=== PATIENT | male | born 1980 | race Caucasian/White ===

== ENCOUNTER 2017-01-15 18:08 | Emergency (ER) | payer BC ==
[2017-01-15 19:38] VITALS: RESP 18
--- NOTE | 2017-01-15 20:52 | ED ---
General Adult HPI - General Chief complaint: Abdominal Pain Stated complaint: CONSTIPATION AND RECTAL BLEEDING Time Seen by Provider: 01/15/17 20:30 Source: patient, RN notes reviewed Mode of arrival: ambulatory - History of Present Illness Initial comments: Patient 36-year-old male who presents emergency room today with chief complaint cast patient 2 days. He does admit that he recently started a prescription of naproxen due to left-sided TMJ. Patient states that he's not had a bowel movement past 3 days. He does admit that he's been straining. He does admit that today when he was wiping he noticed some blood on the toilet paper. Patient states he did call family doctor and on-call nurse advised him come here to the emergency room. Patient denies any other complaints or symptoms currently at this time. Denies ever having similar symptoms in the past. Patient denies any recent fever, chills, shortness of breath, chest pain, back pain, abdominal pain, nausea or vomiting, numbness or tingling, dysuria or hematuria, diarrhea, headaches or visual changes, or any other complaints. - Related Data Home Medications Medication Instructions Recorded Confirmed Amoxicillin 500 mg PO TID 01/15/17 01/15/17 Atorvastatin [Lipitor] 20 mg PO DAILY 01/15/17 01/15/17 Hyoscyamine Sulfate [Levbid] 0.375 mg PO BID 01/15/17 01/15/17 Naproxen [Naprosyn] 375 mg PO BID 01/15/17 01/15/17 Allergies Allergy/AdvReac Type Severity Reaction Status Date / Time codeine Allergy Hallucinati Verified 01/15/17 21:09 ons Review of Systems ROS Statement: Those systems with pertinent positive or pertinent negative responses have been documented in the HPI. ROS Other: All systems not noted in ROS Statement are negative. Past Medical History Past Medical History: No Reported History Additional Past Medical History / Comment(s): irritable bowel syndrome History of Any Multi-Drug Resistant Organisms: None Reported Past Surgical History: Orthopedic Surgery Past Psychological History: Anxiety Smoking Status: Never smoker Past Alcohol Use History: Occasional Past Drug Use History: None Reported General Exam - General Exam Comments Initial Comments: General: The patient is awake and alert, in no distress, and does not appear acutely ill. Eye: Pupils are equal, round and reactive to light, extra-ocular movements are intact. No nystagmus. There is normal conjunctiva bilaterally. No signs of icterus. Ears, nose, mouth and throat: There are moist mucous membranes and no oral lesions. Neck: The neck is supple, there is no tenderness or JVD. Cardiovascular: There is a regular rate and rhythm. No murmur, rub or gallop is appreciated. Respiratory: Lungs are clear to auscultation, respirations are non-labored, breath sounds are equal. No wheezes, stridor, rales, or rhonchi. Gastrointestinal: Soft, non-distended, non-tender abdomen without masses or organomegaly noted. There is no rebound or guarding present. No CVA tenderness. Bowel sounds are unremarkable. Musculoskeletal: Normal ROM, no tenderness. Strength 5/5. Sensation intact. Pulses equal bilaterally 2+. Neurological: A&O x 3. CN II-XII intact, There are no obvious motor or sensory deficits. Coordination appears grossly intact. Speech is normal. Skin: Skin is warm and dry and no rashes or lesions are noted. Psychiatric: Cooperative, appropriate mood & affect, normal judgment. Course Vital Signs 01/15/17 19:34 Temperature 98.9 F Pulse Rate 66 Respiratory 18 Rate Blood Pressure 138/86 O2 Sat by Pulse 98 Oximetry Medical Decision Making - Medical Decision Making Case discussed in detail with attending physician Dr. Ruth. Patient reexamined at this time shows no signs of distress. Abdomen soft nontender. X- ray does show moderate amount of stool no sign of obstruction. Results were discussed with the patient. Patient will be given magnesium citrate and advised to drink a large glass water with this. Advised to use stool softener for any hemorrhoids. Advised follow-up with family doctor over the next 2 days. Advised return to emergency room if there is any dizziness lightheadedness or increase or worsening of symptoms. Patient states understanding and is in agreement with this plan. Disposition Clinical Impression: Constipation Disposition: HOME SELF-CARE Condition: Good Instructions: Constipation (ED) Additional Instructions: Please use medication as discussed. Please follow-up with family doctor in the next 2 days of symptoms have not improved. Please return to emergency room if the symptoms increase or worsen or for any other concerns. Time of Disposition: 21:15
--- NOTE | 2017-01-15 21:07 | XR ---
EXAMINATION TYPE: XR KUB DATE OF EXAM: 01/15/2017 8:54 PM COMPARISON: NONE HISTORY: Rectal pain and bleeding today TECHNIQUE: 2 upright views FINDINGS: There is mild levocurvature of the lumbar spine, likely positional. Mildly prominent pancol onic stool noted, but the bowel gas pattern is normal and there is no pneumoperitoneum or pneumoperit oneum. The soft tissues and skeletal structures of the abdomen and pelvis are unremarkable. The visua lized lung bases and pleural spaces are negative. IMPRESSION: NO ACUTE PROCESS.
[2017-01-15] MEDS ORDERED: MAGNESIUM CITRATE 296 ML BOTTLE PO ONE (21:15)
[2017-01-15 22:02] VITALS: BP 116/76; PULSE 60; TEMP 98
== END 2017-01-15 22:01 | disposition home or self-care (01) ==
LOC: EC 18:08
DX: K59.00 Constipation, unspecified (principal); Z79.899 Other long term (current) drug therapy; Z79.1 Long term (current) use of non-steroidal anti-inflammatories (NSAID); Z88.5 Allergy status to narcotic agent
CPT/HCPCS: 74000; 99284

== ENCOUNTER → 2017-07-29 | Outpatient (CLI) | payer BC ==
--- NOTE | 2017-07-29 08:50 | US ---
EXAMINATION TYPE: US abdomen complete DATE OF EXAM: 07/29/2017 COMPARISON: NONE CLINICAL HISTORY: R19.4 Change in bowel habits. Pt states nausea and change in bowel habits EXAM MEASUREMENTS: Liver Length: 11.7 cm Gallbladder Wall: 0.2 cm CBD: 0.3 cm Spleen: 11.7 cm Right Kidney: 10.4 x 5.4 x 5.3 cm Left Kidney: 11.6 x 5.7 x 4.6 cm Pancreas: wnl, tail obscured by overlying bowel gas Liver: wnl Gallbladder: wnl Evidence for sonographic Navarro's sign: No CBD: wnl Spleen: wnl Right Kidney: wnl Left Kidney: wnl Upper IVC: wnl Abd Aorta: wnl No abnormality visualized to account for pt's symptoms The liver is homogenous. The intrahepatic portion of the IVC and proximal abdominal aorta are within normal limits. There is no evidence of cholelithiasis. Common bile duct is unremarkable. The visu alized portions of the pancreas are homogenous. The spleen is unremarkable. Kidneys are symmetric a nd free of hydronephrosis. No renal lesions are seen. IMPRESSION: Negative study
== END | disposition home or self-care (01) ==
LOC: RADUSWWP 07:46
DX: R19.4 Change in bowel habit (principal)
CPT/HCPCS: 76700

== ENCOUNTER 2017-09-07 00:17 | Emergency (ER) | payer BC ==
[2017-09-07] MEDS ORDERED: DICYCLOMINE 10 MG/ML 2 ML AMP IM STA (01:17)
[2017-09-07] MEDS ORDERED: KETOROLAC 30 MG/ML 1 ML VIAL IVP STA (01:17)
[2017-09-07] MEDS ORDERED: SODIUM CHLORIDE 0.9% 500 ML IV STA (01:17)
[2017-09-07 01:55] LABS: Basophils % (A) 0 %; CH 29.3; CHCM 33.7; Eosinophils # (A) 0.1 k/uL (0-0.7); Eosinophils % (A) 2 %; HCT 44.2 % (39.0-53.0); HDW 2.59; HGB 14.5 gm/dL (13.0-17.5); Luc # (Auto) 0.18; Luc % (Auto) 3; Lymphocytes # (A) 1.6 k/uL (1.0-4.8); Lymphocytes % (A) 29 %; MCH 28.7 pg (25.0-35.0); MCHC 32.9 g/dL (31.0-37.0); MCV 87.3 fL (80.0-100.0); Mean Platelet Volume 6.7; Monocytes # (A) 0.4 k/uL (0-1.0); Monocytes % (A) 8 %; Neutrophils # (A) 3.3 k/uL (1.3-7.7); Neutrophils % (A) 58 %; RBC 5.07 m/uL (4.30-5.90); RDW 12.4 % (11.5-15.5); WBC 5.7 k/uL (3.8-10.6); WBC (Perox) 5.31
--- NOTE | 2017-09-07 02:02 | XR ---
EXAMINATION TYPE: XR KUB DATE OF EXAM: 09/07/2017 COMPARISON: 01/15/2017 HISTORY: Abdominal pain TECHNIQUE: 2 views FINDINGS: There is no sign of intestinal obstruction or pneumoperitoneum. Fecal pattern is normal. Th ere are no pathologic calcifications over the kidneys. Lung bases are clear. There is no evidence of a mass. IMPRESSION: Nonacute abdomen. No change.
[2017-09-07 02:10] LABS: ALT 38 U/L (21-72); AST 34 U/L (17-59); Alkaline Phosphatase 92 U/L (38-126); Amylase 68 U/L (30-110); Anion Gap 9 mmol/L; Blood Urea Nitrogen 15 mg/dL (9-20); Calcium 9.8 mg/dL (8.4-10.2); Carbon Dioxide 29 mmol/L (22-30); Chloride 104 mmol/L (98-107); Glucose 90 mg/dL (74-99); Non-African American GFR(MDRD) >60 (>60 ml/min/1.73 sqM); Sodium 142 mmol/L (137-145); Total Bilirubin 0.6 mg/dL (0.2-1.3); Total Protein 7.1 g/dL (6.3-8.2)
[2017-09-07 02:27] VITALS: RESP 18
[2017-09-07] MEDS ORDERED: RX INFO: IV CONTRAST WAS GIVEN 1 EACH MISC MISCELLANE PRN (02:46)
--- NOTE | 2017-09-07 03:25 | CT ---
EXAM: CT Abdomen and Pelvis With Intravenous Contrast CLINICAL HISTORY: Pain TECHNIQUE: Axial computed tomography images of the abdomen and pelvis with intravenous contrast. CTDI is 7.8, 6.9 mGy and DLP is 579.8 mGy-cm. This CT exam was performed using one or more of the following dose reduction techniques: automated exposure control, adjustment of the mA and/or kV according to patient size, and/or use of iterative reconstruction technique. COMPARISON: No relevant prior studies available. FINDINGS: Lower thorax: No acute findings. ABDOMEN: Liver: Unremarkable. Gallbladder and bile ducts: Unremarkable. Pancreas: Unremarkable. Spleen: Unremarkable. Adrenals: Unremarkable. Kidneys and ureters: Unremarkable. Stomach and bowel: Unremarkable. Appendix: No findings to suggest acute appendicitis. PELVIS: Bladder: Unremarkable. Reproductive: Unremarkable as visualized. ABDOMEN and PELVIS: Intraperitoneal space: Unremarkable. Bones/joints: No acute fracture. No dislocation. Soft tissues: Unremarkable. Vasculature: Unremarkable. Lymph nodes: Unremarkable. IMPRESSION: Normal abdomen and pelvis CT.
--- NOTE | 2017-09-07 03:31 | ED ---
Abdominal Pain HPI - General Chief Complaint: Abdominal Pain Stated Complaint: Stomach Pain/Diarrhea Time Seen by Provider: 09/07/17 00:42 Source: patient Mode of arrival: ambulatory Limitations: no limitations - History of Present Illness Initial Comments: 36-year-old male patient presents to the emergency department today for evaluation of abdominal pain and diarrhea. Patient states that he started having abdominal pain approximately 10 days ago. States the pain is located in the center of his abdomen. He describes the pain is a sharp, cramping, intermittent pain. He states that 2 days ago he began to have "severe" diarrhea. He states that he has had similar symptoms to this over the last year and a half. Patient states that his doctor has been treating him for IBS- D. States he takes hyosciamine which is not controlling his symptoms. Patient states that he called his physician this evening who sent him in for evaluation. Patient denies any fevers or chills with this. Denies any hematochezia, melena, or hematemesis. He states he is not having any nausea or vomiting. States he has no appetite and has decreased his oral intake because he has diarrhea whenever he eats. Patient denies any recent rash, shortness breath, chest pain, back pain, numbness, tingling, dizziness, weakness, hematuria, dysuria, urinary urgency, urinary frequency, headache, visual changes , or any other complaints. Patient states that he has seen a lay out inspector does have an appointment with them on September 25. - Related Data Home Medications Medication Instructions Recorded Confirmed Amoxicillin 500 mg PO TID 01/15/17 01/15/17 Atorvastatin [Lipitor] 20 mg PO DAILY 01/15/17 01/15/17 Hyoscyamine Sulfate [Levbid] 0.375 mg PO BID 01/15/17 01/15/17 Naproxen [Naprosyn] 375 mg PO BID 01/15/17 01/15/17 Previous Rx's Medication Instructions Recorded Dicyclomine [Bentyl] 20 mg PO QID #20 tablet 09/07/17 Allergies Allergy/AdvReac Type Severity Reaction Status Date / Time codeine Allergy Hallucinati Verified 09/07/17 00:21 ons Review of Systems ROS Statement: Those systems with pertinent positive or pertinent negative responses have been documented in the HPI. ROS Other: All systems not noted in ROS Statement are negative. Past Medical History Past Medical History: No Reported History Additional Past Medical History / Comment(s): irritable bowel syndrome History of Any Multi-Drug Resistant Organisms: None Reported Past Surgical History: Orthopedic Surgery Past Psychological History: Anxiety Smoking Status: Never smoker Past Alcohol Use History: Occasional Past Drug Use History: None Reported General Exam Limitations: no limitations General appearance: alert, in no apparent distress, other (This is a well- developed, well-nourished adult male patient in no acute distress. Vital signs upon presentation were temperature 98.1F, pulse 67, respirations 16, blood pressure 142/78, pulse ox 99% on room air.) Eye exam: Present: normal appearance, PERRL, EOMI. Absent: scleral icterus, conjunctival injection, periorbital swelling ENT exam: Present: normal exam, normal oropharynx, mucous membranes moist Respiratory exam: Present: normal lung sounds bilaterally. Absent: respiratory distress, wheezes, rales, rhonchi, stridor Cardiovascular Exam: Present: regular rate, normal rhythm, normal heart sounds. Absent: systolic murmur, diastolic murmur, rubs, gallop, clicks GI/Abdominal exam: Present: soft, tenderness (Mid epigastric tenderness), normal bowel sounds. Absent: distended, guarding, rebound, rigid Neurological exam: Present: alert, oriented X3, CN II-XII intact Psychiatric exam: Present: normal affect, normal mood Skin exam: Present: warm, dry, intact, normal color. Absent: rash Course Vital Signs 09/07/17 09/07/17 00:20 02:26 Temperature 98.1 F Pulse Rate 67 56 L Respiratory 16 18 Rate Blood Pressure 142/78 118/69 O2 Sat by Pulse 99 97 Oximetry Medical Decision Making - Medical Decision Making 36-year-old male patient presents to the emergency department today for evaluation of abdominal pain and diarrhea. Physical examination did reveal some midepigastric tenderness. Labs were reviewed and were unremarkable. CT of the abdomen and pelvis was obtained and did show a normal CT. Patient was updated regarding findings. He states that his symptoms are mildly improved here in the department. I did discuss with him that his findings are most likely a flareup of his irritable bowel syndrome. I did offer to give a prescription for Bentyl however he states that this medication give some panic attacks. Patient does see her Neurologist Does Have an Appointment on September 25. He Is Instructed to Keep This Appointment. I Instructed Him to Follow up with His Primary Care Physician for Recheck in 1-2 Days. He Is Instructed to Return Here Immediately for Any New, Worsening, or concerning Symptoms. He Verbalizes Understanding and Agrees with This Plan. - Lab Data Result diagrams: 09/07/17 01:41 09/07/17 01:41 Lab Results 09/07/17 09/07/17 Range/Units 01:41 01:41 WBC 5.7 (3.8-10.6) k/uL RBC 5.07 (4.30-5.90) m/uL Hgb 14.5 (13.0-17.5) gm/dL Hct 44.2 (39.0-53.0) % MCV 87.3 (80.0-100.0) fL MCH 28.7 (25.0-35.0) pg MCHC 32.9 (31.0-37.0) g/dL RDW 12.4 (11.5-15.5) % Plt Count 257 (150-450) k/uL Neutrophils % 58 % Lymphocytes % 29 % Monocytes % 8 % Eosinophils % 2 % Basophils % 0 % Neutrophils # 3.3 (1.3-7.7) k/uL Lymphocytes # 1.6 (1.0-4.8) k/uL Monocytes # 0.4 (0-1.0) k/uL Eosinophils # 0.1 (0-0.7) k/uL Basophils # 0.0 (0-0.2) k/uL Sodium 142 (137-145) mmol/L Potassium 5.0 (3.5-5.1) mmol/L Chloride 104 (98-107) mmol/L Carbon Dioxide 29 (22-30) mmol/L Anion Gap 9 mmol/L BUN 15 (9-20) mg/dL Creatinine 0.90 (0.66-1.25) mg/dL Est GFR (MDRD) Af Amer >60 (>60 ml/min/1.73 sqM) Est GFR (MDRD) Non-Af >60 (>60 ml/min/1.73 sqM) Glucose 90 (74-99) mg/dL Calcium 9.8 (8.4-10.2) mg/dL Total Bilirubin 0.6 (0.2-1.3) mg/dL AST 34 (17-59) U/L ALT 38 (21-72) U/L Alkaline Phosphatase 92 (38-126) U/L Total Protein 7.1 (6.3-8.2) g/dL Albumin 4.5 (3.5-5.0) g/dL Amylase 68 (30-110) U/L Lipase 130 (23-300) U/L - Radiology Data Radiology results: report reviewed, image reviewed KUB x-ray of the abdomen shows no sign of intestinal obstruction or pneumoperitoneum. Fecal pattern is normal. There are no pathologic calcifications over the kidneys. Lung bases are clear. There is no evidence of a mass. Impression by Dr. Nagel shows nonacute abdomen with no change. CT of the abdomen and pelvis with contrast report reviewed in its entirety, impression by Dr. Briggs shows normal abdomen and pelvis CT. Disposition Clinical Impression: Abdominal pain, Diarrhea Disposition: HOME SELF-CARE Condition: Good Instructions: Acute Diarrhea (ED), Abdominal Pain (ED) Additional Instructions: Increase fluids. Take medications as directed. Follow-up with your primary care physician for further evaluation. Follow up with lay out inspector. Return here immediate for any new, worsening, or concerning symptoms. Prescriptions: Dicyclomine [Bentyl] 20 mg PO QID #20 tablet Referrals: Amira Adler III, MD [Primary Care Provider] - 1-2 days Time of Disposition: 03:31
[2017-09-07 03:54] VITALS: BP 111/69; PULSE 70; TEMP 97.6
== END 2017-09-07 03:54 | disposition home or self-care (01) ==
LOC: EC 00:17
DX: R10.13 Epigastric pain (principal); R19.7 Diarrhea, unspecified; Z79.1 Long term (current) use of non-steroidal anti-inflammatories (NSAID); Z79.899 Other long term (current) drug therapy; Z88.5 Allergy status to narcotic agent
CPT/HCPCS: 36415; 80053; 82150; 83690; 85025; 74000; 74177; 99284; 96374; 96361 ×2; 96372; J0500; J1885; Q9967

== ENCOUNTER 2018-02-06 17:19 | Emergency (ER) | payer BC, OTHER ==
[2018-02-06 17:26] VITALS: BP 128/74; PULSE 89; RESP 16; TEMP 97.9
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
== END 2018-02-06 18:15 | disposition home or self-care (01) ==
LOC: EC 17:19
DX: S09.90XA Unspecified injury of head, initial encounter (principal); K58.9 Irritable bowel syndrome, unspecified; R42 Dizziness and giddiness; Z79.1 Long term (current) use of non-steroidal anti-inflammatories (NSAID); Z79.899 Other long term (current) drug therapy; Z88.5 Allergy status to narcotic agent; W20.8XXA Other cause of strike by thrown, projected or falling object, initial encounter; Y92.69 Other specified industrial and construction area as the place of occurrence of the external cause; Y99.0 Civilian activity done for income or pay
CPT/HCPCS: 70450; 99283

== ENCOUNTER → 2020-08-13 | Outpatient (CLI) | payer BC ==
--- NOTE | 2020-08-13 18:46 | XR ---
EXAMINATION TYPE: XR lumbar spine 2 or 3V DATE OF EXAM: 08/13/2020 CLINICAL HISTORY: Intermittent lower back pain. No known injury. TECHNIQUE: Frontal and lateral images of the lumbar spine are obtained. COMPARISON: CT abdomen pelvis 09/07/2017. FINDINGS: There are 5 lumbar type vertebral bodies identified. The lumbar spine shows satisfactory alignment without evidence of acute fracture or dislocation. Vertebral body heights and disk space he ights are within normal limits. No spondylolisthesis. The overlying soft tissue appears unremarkable. IMPRESSION: Unremarkable radiograph of the lumbar spine.
== END | disposition home or self-care (01) ==
LOC: RADXRMAIN 12:57
PROVIDERS: ATTEND Nurse Practitioner Family
DX: M54.5 Low back pain (principal)
CPT/HCPCS: 72100

== ENCOUNTER → 2020-08-27 | Outpatient (CLI) | payer BC | END | disposition home or self-care (01) | LOC: LABWHC1 11:16 | PROVIDERS: ATTEND Family Medicine | DX: Z20.828 Contact with and (suspected) exposure to other viral communicable diseases (principal) | CPT/HCPCS: U0003; C9803 ==

== ENCOUNTER → 2020-12-18 | Outpatient (CLI) | payer BC ==
--- NOTE | 2020-12-18 08:52 | US ---
EXAMINATION TYPE: US abdomen complete DATE OF EXAM: 12/18/2020 COMPARISON: None CLINICAL HISTORY: 40-year-old male R79.89 Abnormal findings of blood chemistry. TECHNIQUE: Multiple sonographic images of the abdomen are obtained. FINDINGS: EXAM MEASUREMENTS: Liver Length: 12.8 cm Gallbladder Wall: 0.1 cm CBD: 0.3 cm Spleen: 10.5 cm Right Kidney: 11.8 x 5.7 x 5.5 cm Left Kidney: 11.3 x 4.9 x 4.9 cm Pancreas: Only a small portion of the pancreatic body is visualized. The remainder is obscured by bow el gas shadowing. Liver: No focal lesion seen. Gallbladder: No stones seen Evidence for sonographic Navarro's sign: No CBD: wnl Spleen: wnl Kidneys: No hydronephrosis on either side. Upper IVC: wnl Abd Aorta: wnl IMPRESSION: Suboptimal visualization of the pancreas. Otherwise, unremarkable sonographic examination of the abdo men.
== END ==
LOC: RADUSWWP 08:11
PROVIDERS: ATTEND Family Medicine
DX: R79.89 Other specified abnormal findings of blood chemistry (principal)
CPT/HCPCS: 76700

== ENCOUNTER → 2022-11-02 | Outpatient (CLI) | payer BC ==
--- NOTE | 2022-11-02 10:09 | XR ---
EXAMINATION TYPE: XR chest 2V DATE OF EXAM: 11/02/2022 COMPARISON: NONE TECHNIQUE: PA and lateral views submitted. HISTORY: Presurgical FINDINGS: The lungs are clear and there is no pneumothorax, pleural effusion, or focal pneumonia. Heart size normal and no overt failure. Osseous structures demonstrate hypertrophic and degenerative changes of the spine. IMPRESSION: 1. No acute process.
[2022-11-02 10:22] LABS: Partial Thromboplastin Time 26.4 sec (22.0-30.0); Prothrombin Time 10.4 sec (9.0-12.0)
[2022-11-02 14:56] LABS: Anion Gap 9.9 mmol/L (10.00-18.00); BUN/Creat Ratio 10.19 Ratio (12.00-20.00); Blood Urea Nitrogen 10.7 mg/dL (9.0-27.0); Calcium 9.6 mg/dL (8.7-10.3); Carbon Dioxide 26.5 mmol/L (20.0-27.5); Non-African American GFR(CKD) 87.1 (60.0-200.0); Potassium 4.4 mmol/L (3.5-5.5)
[2022-11-02 15:01] LABS: Basophils # (A) 0.02 X 10*3/uL (0.00-0.10); Basophils % (A) 0.4 %; Eosinophils # (A) 0.06 X 10*3/uL (0.04-0.35); Eosinophils % (A) 1.2 %; HCT 44.1 % (39.6-50.0); HGB 14.7 g/dL (13.0-17.0); Immature Grans, Automated 0.2 %; Lymphocytes # (A) 1.17 X 10*3/uL (0.90-5.00); Lymphocytes % (A) 24.2 %; MCH 28.3 pg (27.0-32.0); MCHC 33.3 g/dL (32.0-37.0); Mean Platelet Volume 9.3 fL (9.5-12.2); Monocytes # (A) 0.54 X 10*3/uL (0.20-1.00); Monocytes % (A) 11.2 %; NRBC Per 100 WBC 0 /100 WBCS (0.0-0.0); Neutrophils # (A) 3.03 X 10*3/uL (1.80-7.70); Neutrophils % (A) 62.8 %; Platelet Count 285 X 10*3/uL (140-440); RBC 5.19 X 10*6/uL (4.40-5.60); RDW 12.1 % (11.5-14.5); WBC 4.83 X 10*3/uL (4.50-10.00)
[2022-11-02 16:58] LABS: Appearance,Urine Clear (Clear); Bilirubin,Urine Negative (Negative); Blood,Urine Negative (Negative); Color,Urine Dark Yellow (Yellow); Ketones,Urine Negative (Negative); Nitrite,Urine Negative (Negative); PH, Urine 5.5 (5.0-8.0); Specific Gravity,Urine 1.032 (1.001-1.030)
== END | disposition home or self-care (01) ==
LOC: LABPAT 09:13
PROVIDERS: ATTEND Family Medicine
DX: Z01.818 Encounter for other preprocedural examination (principal); R00.1 Bradycardia, unspecified; R94.31 Abnormal electrocardiogram [ECG] [EKG]; M51.17 Intervertebral disc disorders with radiculopathy, lumbosacral region; E78.2 Mixed hyperlipidemia; F41.9 Anxiety disorder, unspecified; M47.27 Other spondylosis with radiculopathy, lumbosacral region
CPT/HCPCS: 71046; 80048; 81003; 85025; 85610; 85730; 87070; 93005

== ENCOUNTER 2022-11-11 06:25 | Observation (INO) | payer BC ==
[2022-11-03 10:54] VITALS: BMI 31.4
[~2022-11-11 06:25] MED LIST: DEXAMETHASONE SOD PHOSPHATE 4 MG/ML 1 ML VIAL IV ONE; LIDOCAINE 1% (10MG/ML) FOR IV START INTRADERMA PRN; ceFAZolin 1,000 MG in SODIUM CHLORIDE 0.9% IRRIGATIO 1,000 ML IRRIGATION PRN
[2022-11-11] MEDS ORDERED: METOCLOPRAMIDE 5 MG/ML 2 ML VIAL IVP PRN (07:00)
[2022-11-11] MEDS: LACTATED RINGERS 1,000 ML IV SCH (07:05)
[2022-11-11] MEDS: ONDANSETRON 4 MG/2 ML VIAL IVP ONE ×2 (07:10→10:53)
[2022-11-11] MEDS ORDERED: MIDAZOLAM 2 MG/2 ML VIAL IV ONE (07:16)
[2022-11-11] MEDS ORDERED: fentaNYL (PF) 50 MCG/ML 2 ML AMP ONE (07:28)
[2022-11-11] MEDS ORDERED: PROPOFOL 10 MG/ML 20 ML VIAL IV ONE (07:28)
[2022-11-11] MEDS ORDERED: HYDROmorphone (PF) 1 MG/ML ONE (07:28)
[2022-11-11] MEDS ORDERED: KETAMINE 10 MG/ML 20 ML VIAL ONE (07:28)
[2022-11-11] MEDS ORDERED: MIDAZOLAM 2 MG/2 ML VIAL ONE (07:28)
[2022-11-11] MEDS ORDERED: NEOSTIGMINE 1 MG/ML 10 ML VIAL ONE (07:28)
[2022-11-11] MEDS ORDERED: SUCCINYLCHOLINE CHLORIDE 200 MG/10 ML VIAL IV ONE (07:28)
[2022-11-11] MEDS ORDERED: LIDOCAINE 2% INJ 20 MG/ML (2 ML VIAL) ONE (07:28)
[2022-11-11] MEDS ORDERED: GLYCOPYRROLATE 0.2 MG/ML 2 ML VIAL ONE (07:28)
[2022-11-11] MEDS ORDERED: ROCURONIUM 10 MG/ML (5 ML VIAL) IV ONE (07:28)
[2022-11-11] MEDS ORDERED: GELATIN SPONGE,ABSORB (LARGE) 1 EACH SPONGE TOPICAL ONE (07:59)
[2022-11-11] MEDS ORDERED: LIDOCAINE 2%-EPI 1:100,000 20 ML VIAL SQ ONE ×2 (08:01→08:06)
[2022-11-11] MEDS ORDERED: BUPIVACAINE (PF) 0.5% 30 ML VIAL SQ ONE ×2 (08:01→08:06)
[2022-11-11] MEDS ORDERED: THROMBIN (BOVINE) 5,000 UNIT VIAL TOPICAL ONE (08:01)
[2022-11-11] MEDS ORDERED: HYDROcodone/APAP 5-325MG 1 EACH TAB PO PRN (10:48)
[2022-11-11] MEDS ORDERED: BENZOCAINE/MENTHOL LOZENG 1 EACH LOZENGE MUCOUS MEM PRN (10:48)
[2022-11-11] MEDS ORDERED: HYDROmorphone 0.5 MG/0.5 ML SYRINGE IVP PRN (10:48)
[2022-11-11] MEDS ORDERED: MAGNESIUM HYDROXIDE 2,400 MG/10 ML CUP PO PRN (10:48)
--- NOTE | 2022-11-11 10:59 | P.OP ---
Date of Procedure: 11/11/22 Preoperative Diagnosis: Recurrent disc herniation L5-S1, recurrent stenosis L5-S1, listhesis L5-S1, degenerative disc disease, lower extremity radiculopathy, lower extremity weakness, history of laminectomy discectomy L5-S1 Postoperative Diagnosis: Recurrent disc herniation L5-S1, recurrent stenosis L5-S1, listhesis L5-S1, degenerative disc disease, lower extremity radiculopathy, lower extremity weakness, history of laminectomy discectomy L5-S1 Anesthesia: GETA Pathology: none sent Condition: stable Disposition: PACU Description of Procedure: DESCRIPTION OF PROCEDURE(S): BRIEF OPERATIVE NOTE Preoperative Diagnosis: Recurrent disc herniation L5-S1, recurrent stenosis L5- S1, listhesis L5-S1, degenerative disc disease, lower extremity radiculopathy, lower extremity weakness, history of laminectomy discectomy L5-S1 Postoperative Diagnosis: Recurrent disc herniation L5-S1, recurrent stenosis L5- S1, listhesis L5-S1, degenerative disc disease, lower extremity radiculopathy, lower extremity weakness, history of laminectomy discectomy L5-S1 Procedure: Revision Laminectomy and decompression L5-S1 Computer CT navigation aided Minimally invasive Posterior lateral decompression and facet fusion L5-S1 Minimally invasive Transforaminal lumbar interbody fusion for a 360 fusion L5-S1 Revision Discectomy for decompression L5-S1 Placement of interbody graft L5-S1 Use of computer navigation for fusion Local autogenous bone grafting Aspiration of bone marrow from the vertebral body pedicle at L5 on the left Use of bone graft extenders Surgeon: Dr. Dailey Back Stayer: Abundio VALLECILLO who is present throughout the entire the case persistence during positioning, dissection, exposure, visualization, and all crucial elements of the case as well as closure. Anesthesia: General anesthesia per Estimated blood loss: Approximately 200 mL Complications: None apparent Components implanted: K2M minimally invasive Burt pedicle screw system withscrews measuring 6.5 mm in diameter to rods one Hampton interbody cage with 10 mL of osteo amp bio4 bone graft substitute and 30 mL of the BX bone fibers to supplement the local autogenous bone graft and bone marrow aspirate Disposition: To recovery room in good stable condition. OPERATIVE INDICATIONS The patient has had severe issues at their lower extremity in her lower back over the past several months with significant worsening over the past few month s. The patient had a history of issues in his left lower extremity with severe radiculopathy due to disc herniation several years ago. Patient had undergone conservative treatment but when that failed he proceed with laminectomy decompression with discectomy at L5-S1 left. Patient was very happy with his results at that point he had significant treatment I was able to return to his full duty. However the patient had recurrence of his issues pain at his back and his left lower extremity over similar area. His found have recurrent disc herniation with significant scar tissue formation and stenosis at L5-S1 over the same area. Over the past few months the patient had pain at their back and their lower extremities. The patient is having severe radicular symptoms at their lower extremity with weakness. The patient is having significant pain in their back. They are unable to obtain any comfort. We did aggressive conservative treatment with medications therapy and interventional pain management however thery were not having any relief. The patient also showed evidence of a listhesis with some dynamic instability at L5-S1 with continued breakdown the disc space and progressive spondylosis at the L5-S1 level. The patient has been through conservative treatment. I felt that if he were to undergo further decompression at the area was destabilized and would be further destabilize and would need stabilization with fusion at the level. We discussed various treatment options including surgery, and the patient wishes to proceed with surgery We discussed the risk, patient's alternatives and benefits of surgery including but not limited to, risk of bleeding risk of infection, risk of need for further surgery, risk of decreased, loss of motion, muscle function, malunion nonunion, hardware failure, nerve damage, paralysis, heart attack, blindness and . They understood issues with the current pandemic and the possibility of exposure. OPERATIVE SUMMARY After discussing all the risks, patient alternatives and benefits at length, the patient elected to proceed with surgical intervention, signed informed consent, and presented for their procedure. The patient was seen and examined in the preoperative holding area and the surgical site was marked. The patient was given antibiotics and brought to the operating room. The patient was sedated and intubated by anesthesia in standard fashion. The patient was positioned on to the operating room table in a prone position on the appropriate frame which was well-padded and well molded. We were careful to pad any bony prominences and pressure points. We were careful to maintain the patient's cervical spine and good neutral alignment and position throughout. The patient was prepped and draped in a normal standard fashion. An appropriate timeout and keystone protocol performed. We were able to proceed with the surgery. The local wound area was infiltrated with local anesthetic. Over the right iliac crest I was able to make small stab incisions and establish a guidepin screw fixation to the iliac crest 2. I was able place the computer referencing device over the guidepins to establish an appropriate reference point for the Ziem CT navigation. We then were able to place patient in an appropriate drape and do a navigation spin for visualization and 3-D reconstruction of the lumbar spine. I was able utilize C-arm guidance and navigation to establish appropriate position over the pedicles bilaterally at the appropriate levels at L5-S1. With the appropriate levels confirmed was able to make small incisions over the appropriate pedicle sites bilaterally. Utilizing the computer navigation device I was able to establish bony landmarks at the right iliac crest for a bony reference point for the navigation device. I was able to establish a Jamshidi needle over the lateral aspect of the pedicle and advanced the trocar into the pedicle being careful not to breech superiorly inferiorly medially or laterally using computer navigation device. Position was confirmed regularly with AP and lateral images on C-arm and with the computer navigation device at the appropriate levels bilaterally. I was able to establish the trocar into the pedicle appropriately into the posterior aspect of the vertebral body bilaterally at the appropriate levels. This was done at each of the pedicle positions and each of the vertebrae. At the superior vertebrae of L5 on the left I was able to take approximately 25 mL of bone aspiration for use later in the case to supplement the allograft and autograft bone. I was able place the guidewire into the trocar and into the vertebral body appropriately under C-arm guidance. Dissection was taken down over the wire to the appropriate starting position for the screw placed. The appropriate length screw was chosen, threaded over the guidewire and screwed appropriately into the pedicle and vertebral body under C-arm guidance in excellent alignment and position with good bony purchase. This is done at each of the screw sites at the appropriate levels at L5 and S1. With the screws intact I extended the incision to connect the screw hole sites o n the most symptomatic side on the left. I dissected down to establish access over the pars and lamina to the base of the spinous process. I was able to expose the facet joint. It was noted that there was a her surgery at the area and there was significant scar tissue around the area which had to be dealt with an increase the surgical time and complexity. There is significant scar tissue around the epidural space as well which had to be teased out safely. The capsule the facet was taken down and showed some facet arthrosis at the joint. I was able to take down significant portion scar tissue formation as well as disc. Some of the scar tissue was significantly adherent to the dura and I had to leave it intact but was able to free up the space for a freely mobile nerve root. I was able to use a combination of curettes and Kerrison rongeurs and a high-speed drill to take down the facet joint and do a facetectomy. I was able get excellent foraminal decompression and central decompression with undermining across midline to perform a laminectomy centrally and contralaterally. I was able get good central decompression. The ligamentum flavum was taken down to further decompress centrally and at bilateral neural foramen. I was able to expose the disc space and visualize the traversing nerve root. Note was made of some disc protrusion and disc herniation that was abutting the traversing nerve root at the level causing further compression of the nerve root. I was able to establish a annulotomy at the appropriate level protecting soft tissue and neural structures. Note was made of some disc desiccation at the disc. I performed a complete discectomy with accommodation of curettes and rasps and scrapers. I was able get good endplate preparation at the disc space. I sized for the appropriate size interbody spacer protecting the soft tissue and neural structures. The wound was copiously irrigated and suctioned dry. There is no evidence of any dural tear or leak. I was able to pack the disc space with local autogenous bone graft as well as a small amount of bone graft which was also placed into the interbody cage itself. Protecting the soft tissue structures and neural structures I was able place the interbody cage in good alignment and good position with good fit and fill at the interbody space of L5 and S1. Position was confirmed with C-arm guidance. Good hemostasis maintained. There is no evidence of any dural tear or leak. The wound was irrigated and suctioned dry. With the hardware intact, intraoperative C-arm imaging was again taken which showed good alignment and position of the hardware at the appropriate levels of L5-S1. We were then able to measure, contour and place the rods and appropriate hardware bilaterally. I was able to place capcrews, tighten them down, and torque them with the torque screwdriver appropriately. With this intact I was able to place the local autogenous bone graft with additional bone graft enhancer as necessary into the posterior lateral gutters over the decorticated transverse processes and facet joints on the contralateral side. The remainder of the bone graft was placed over the facet joint on the contralateral side after taking down the facet joint capsule. With the bone graft intact, a stable construct, and good decompression at the appropriate levels, we were able to proceed with closure. Good hemostasis was maintained. There is no evidence of dural tear or leak. The fascia was closed for a watertight closure. he subcuticular tissue was closed with absorbable suture. The wound was cleaned and dried and dressed with the appropriate dressing. The drapes were broken down. The patient was gently rolled back onto their hospital bed being careful to maintain their cervical spine and good neutral alignment and position. They were woken up by anesthesia, extubated, and brought to the recovery room in good stable condition. The patient will be admitted to the hospital for appropriate postoperative care, medical management and monitoring. We will continue to follow them closely about the postoperative course.
[2022-11-11] MEDS: HYDROmorphone 0.5 MG/0.5 ML SYRINGE IVP PRN ×2 (11:17→11:37)
--- NOTE | 2022-11-11 11:42 | FL ---
EXAMINATION TYPE: FL guidance operating room, XR lumbar spine 2 or 3V DATE OF EXAM: 11/11/2022 CLINICAL HISTORY: Low back pain. TECHNIQUE: Fluoroscopy. Intraoperative 2 views lumbar spine COMPARISON: None. FINDINGS: Fluoroscopic guidance was provided during lumbar fusion procedure performed by Dr. Dailey. A total of 25 seconds of fluoroscopic time was utilized during the procedure and 5 spot images was a cquired. Intraoperative images acquired show eventual placement of metallic interpedicular rods and screws and metallic disc material at L5-S1 level. Satisfactory alignment is seen on intraoperative images obtai rosmery. IMPRESSION: As Above.
[2022-11-11] MEDS: HYDROmorphone 1 MG/ML 1 ML SYRINGE IVP PRN ×2 (14:14→20:08)
[2022-11-11] MEDS: CYCLOBENZAPRINE 10 MG TAB PO PRN ×2 (14:14→23:49)
[2022-11-11] MEDS: SODIUM CHLORIDE 0.9% 1,000 ML IV SCH (16:28)
[2022-11-11] MEDS: HYDROcodone/APAP 5-325MG 1 EACH TAB PO PRN ×2 (16:38→23:45)
[2022-11-12] MEDS: SODIUM CHLORIDE 0.9% 1,000 ML IV SCH (00:12)
--- NOTE | 2022-11-12 00:45 | P.CONS ---
History of Present Illness - Reason for Consult Consult date: 11/11/22 Medical management - Chief Complaint Status post revision laminectomy L4 S1 - History of Present Illness Patient is a 42-year-old male with a known history of hyperlipidemia, GERD, IBS and chronic back pain/spinal stenosis and history of laminectomy and multiple steroid injections was admitted to hospital for elective laminectomy and decompression L5-S1. Patient tolerated the procedure very well. Postoperative day 0. Denied any complaints of numbness or tingling sensation of the lower extremity. No complaints of chest pain or shortness breath. No nausea vomiting or abdominal pain or diarrhea. Patient has been afebrile. Laboratory data is not available at this time. Review of Systems Constitutional: Patient denies any fever or chills . no Generalized weakness. Abdomen: Patient denied any nausea or vomiting or abd. pain Cardiovascular: Patient denies any chest pain or short of breath no palpitations. Respiratory: patient denied any cough . no sputum production. No shortness of breath Neurologic: Patient denied any numbness or tingling headache. Musculoskeletal: Patient denies any complaints of joint swelling or deformity. Skin: Negative Psychiatric: Negative Endocrine: No heat or cold intolerance. No recent weight gain. Genitourinary: No dysuria or hematuria. All other 14 point ROS negative except the above Past Medical History Past Medical History: GERD/Reflux, Hyperlipidemia Additional Past Medical History / Comment(s): had prednisone in Aug 2022,irritable bowel syndrome,chronic back pain-spinal stenosis and degenerative disc disc History of Any Multi-Drug Resistant Organisms: None Reported Past Surgical History: Back Surgery, Orthopedic Surgery Additional Past Surgical History / Comment(s): laminectomy,oral surgery-no problems opening and closing jaw,closed reduction 5th digit rt hand, mult pain clinic procedures to back(steroid injections and nerve ablation) Past Anesthesia/Blood Transfusion Reactions: No Reported Reaction, Family History of Problems w/ Anesthesia Additional Past Anesthesia/Blood Transfusion Reaction / Comm: had panic attack w/ last laminectomy surgery,. sister has severe PONV. no hx blood transfusion Smoking Status: Never smoker - Past Family History Mother Family Medical History: No Reported History Additional Family Medical History / Comment(s): maternal grandfather brain CA Father Family Medical History: Deep Vein Thrombosis (DVT) Additional Family Medical History / Comment(s): paternal grandfather had a stoke. paternal grandmother had emphysema Medications and Allergies Home Medications Medication Instructions Recorded Confirmed Type Atorvastatin [Lipitor] 20 mg PO DAILY 01/15/17 11/03/22 History Hydrocodone/Acetaminophen 1 tab PO Q8H PRN 11/03/22 11/03/22 History [Hydrocodone/Acetaminophen 5-325] Ibuprofen [Advil] 200 mg PO Q8HR PRN 11/03/22 11/03/22 History Allergies Allergy/AdvReac Type Severity Reaction Status Date / Time codeine Allergy agitated Verified 11/03/22 10:25 egg Allergy Diarrhea,abdominal Verified 11/03/22 10:26 cramping Physical Exam Vitals: Vital Signs Temp Pulse Pulse Resp BP BP Pulse Ox 11/11/22 12:01 73 16 163/66 96 11/11/22 11:45 71 16 143/77 100 11/11/22 11:30 80 16 153/74 100 11/11/22 11:15 84 16 146/74 100 11/11/22 11:00 96 14 135/70 100 11/11/22 10:45 97.4 F L 85 10 L 129/78 99 11/11/22 06:55 97.2 F L 67 16 138/84 98 Intake and Output 11/11/22 11/11/22 11/11/22 06:59 14:59 22:59 Intake Total 951 Output Total 250 Balance 701 Intake: IV 951 Output: Urine 50 Estimated Blood Loss 200 Other: Weight 104.7 kg PHYSICAL EXAMINATION: Patient is lying in the bed comfortably, no acute distress, awake alert and oriented.. HEENT: Normocephalic. Neck is supple. Pupils reactive. Nostrils clear. Oral cavity is moist. Neck reveals no JVD, carotid bruits, or thyromegaly. CHEST EXAMINATION: Trachea is central. Symmetrical expansion. Lung mack clear to auscultation and percussion. CARDIAC: Normal S1, S2 with no gallops. No murmurs ABDOMEN: Soft. Bowel sounds present. Nontender. No organomegaly. No abdominal bruits. Extremities: reveal no edema. No clubbing or cyanosis Neurologically awake, alert, oriented x3 with well-coordinated movements. No focal deficits noted Skin: No rash or skin lesions. Psychiatric: Coperative. Nonsuicidal, Musculoskeletal: No joint swelling or deformity. Normal range of motion. Lumbar surgical site bandaged. Assessment and Plan Assessment: S/p revision laminectomy and decompression the L5-S1. Postoperative day 0 Recommend discontinuation L4 S1 and recurrent stenosis and degenerative disc disease, lower extremity radiculopathy and weakness. GERD Hyperlipidemia DVT prophylaxis with SCDs Plan: Patient will be continued on pain management as per anesthesia/pain service. Continue with statins and encourage incentive spirometry. Will follow closely and further recommendations based on the clinical course. Follow-up CBC and BMP tomorrow. Thank you for your consult.
[2022-11-12] MEDS ORDERED: ACETAMINOPHEN TAB 325 MG TAB PO PRN (02:04)
[2022-11-12] MEDS: HYDROmorphone 1 MG/ML 1 ML SYRINGE IVP PRN ×4 (02:50→22:21)
[2022-11-12] MEDS: LACTATED RINGERS 1,000 ML IV SCH (06:04)
[2022-11-12] MEDS: HYDROcodone/APAP 5-325MG 1 EACH TAB PO PRN ×4 (06:05→20:20)
[2022-11-12] MEDS: diazePAM 5 MG TAB PO PRN ×2 (06:27→16:34)
[2022-11-12] MEDS: ATORVASTATIN 20 MG TAB PO SCH (08:45)
[2022-11-12 09:40] LABS: Basophils # (A) 0.01 X 10*3/uL (0.00-0.10); Basophils % (A) 0.1 %; Eosinophils # (A) 0.02 X 10*3/uL (0.04-0.35); Eosinophils % (A) 0.2 %; HCT 38.6 % (39.6-50.0); HGB 12.7 g/dL (13.0-17.0); Immature Grans, Automated 0.3 %; Lymphocytes % (A) 10.1 %; MCH 28.6 pg (27.0-32.0); MCHC 32.9 g/dL (32.0-37.0); MCV 86.9 fL (80.0-97.0); Mean Platelet Volume 9.6 fL (9.5-12.2); Monocytes % (A) 14.1 %; NRBC Per 100 WBC 0 /100 WBCS (0.0-0.0); Neutrophils # (A) 7.48 X 10*3/uL (1.80-7.70); Neutrophils % (A) 75.2 %; Platelet Count 239 X 10*3/uL (140-440); RBC 4.44 X 10*6/uL (4.40-5.60); RDW 12.8 % (11.5-14.5); WBC 9.94 X 10*3/uL (4.50-10.00)
[2022-11-12 10:04] LABS: African American GFR (CKD) 98.7 (60.0-200.0); Anion Gap 10.8 mmol/L (10.00-18.00); BUN/Creat Ratio 9.81 Ratio (12.00-20.00); Blood Urea Nitrogen 10.5 mg/dL (9.0-27.0); Calcium 8.8 mg/dL (8.7-10.3); Carbon Dioxide 26.5 mmol/L (20.0-27.5); Non-African American GFR(CKD) 85.2 (60.0-200.0)
[2022-11-12] MEDS: TAMSULOSIN 0.4 MG CAP.ER.24H PO SCH (10:56)
[2022-11-12] MEDS: CYCLOBENZAPRINE 10 MG TAB PO PRN ×2 (10:56→20:20)
--- NOTE | 2022-11-12 10:56 | P.PN ---
Progress Note - Text Progress Note Date: 11/12/22 Postoperative day #1 Patient is seen and examined today at bedside. The patient has some pain around the surgical site as expected but has been able to get it out of bed with assistance. Pain is being controlled somewhat with medication. The patient had his White catheter discontinued yesterday evening but is having some post void residuals. His postvoid residual this morning was about 372. He says his left leg symptoms are improved. He is having some numbness has right thigh but he has good strength throughout. He denies any nausea vomiting. Physical Exam Afebrile with stable vital signs Abdomen is soft nontender. Chest has good excursion deep and space expiration The incision site is clean dry and intact. No erythema there is no purulence. His back dressing is clear Extremities have not had neurologic change from prior to surgery. He has sustained dorsal flexion plantarflexion and EHL intact. He is able to lift his legs up off the bed independently. Calves and thighs were soft nontender without evidence of DVT. Assessment/Plan Postoperative day #1 status post minimally invasive revision decompression and discectomy with fusion L5-S1 Patient is progressing adequately from the surgery. His pain seems appropriately controlled this morning basal having significant spasms and he may do well with alternating his Valium and Flexeril throughout the day. I discussed this with staff We will continue to increase the patient's mobilization with therapy. We will continue pain control with oral or IV medications. He is having trouble voiding fully. He is still able to urinate but having difficulty emptying. Medicine has started him on Flomax and I agree with this. If he has too much postvoid residual later this evening that he may need a catheter placed overnight for bowel rest however he would certainly like to avoid this and hopefully he will be able to continue to void on his own. We'll continue to follow patient closely.
--- NOTE | 2022-11-12 14:54 | P.PN ---
Subjective Progress Note Date: 11/12/22 - Reason for Consult Consult date: 11/11/22 Medical management - Chief Complaint Status post revision laminectomy L4 S1 - History of Present Illness Patient is a 42-year-old male with a known history of hyperlipidemia, GERD, IBS and chronic back pain/spinal stenosis and history of laminectomy and multiple steroid injections was admitted to hospital for elective laminectomy and decompression L5-S1. Patient tolerated the procedure very well. Postoperative day 0. Denied any complaints of numbness or tingling sensation of the lower extremity. No complaints of chest pain or shortness breath. No nausea vomiting or abdominal pain or diarrhea. Patient has been afebrile. Laboratory data is not available at this time. 11/12/2022 Patient seen and evaluated in follow-up this morning status post elective thomas inectomy and decompression of the L5 to S1 with Dr. Dailey postop day 1. Per nursing staff patient required straight catheterization last night as patient was retaining over 700. Patient continues to have some mild retention at this time although refusing straight cath or indwelling White catheter and will add Flomax and monitor intake and output closely. Patient reports his pain is severe above 8/10 although reports his Valium that was changed has been improving his pain. Patient to be seen and evaluated physical therapy which is currently pending this morning. Patient is afebrile denies chest pain or shortness of breath. Recommend incentive spirometer and encourage the patient easily sometimes every hour while awake. No reports of nausea or vomiting noted and patient is tolerating diet. Review of systems: Constitutional: No reports of fatigue, fever, or chills Cardiovascular: No reports of chest pain or palpitations Respiratory: No reports of shortness of breath or cough GI: No reports of nausea, vomiting, or diarrhea : No reports of dysuria or retention Neurovascular: reports of generalized weakness and continued pain with spasms All medications have been reviewed Active Medications Acetaminophen (Acetaminophen Tab 325 Mg Tab) 650 mg PO Q6HR PRN PRN Reason: Fever and/ or Pain Last Admin: 11/12/22 02:19 Dose: 650 mg Hydrocodone Bitart/Acetaminophen (Hydrocodone/Apap 5-325mg 1 Each Tab) 1 each PO Q4HR PRN PRN Reason: MODERATE Pain Stop: 12/11/22 10:49 Last Admin: 11/11/22 12:58 Dose: 1 each Hydrocodone Bitart/Acetaminophen (Hydrocodone/Apap 5-325mg 1 Each Tab) 2 each PO Q4HR PRN PRN Reason: SEVERE Pain Last Admin: 11/12/22 10:56 Dose: 2 each Atorvastatin Calcium (Atorvastatin 20 Mg Tab) 20 mg PO DAILY PIO Stop: 12/12/22 09:01 Last Admin: 11/12/22 08:45 Dose: 20 mg Benzocaine/Menthol (Benzocaine/Menthol Lozeng 1 Each Lozenge) 1 each MUCOUS MEM Q4HR PRN PRN Reason: Sore Throat Stop: 12/11/22 10:49 Last Admin: 11/11/22 12:59 Dose: 1 each Cyclobenzaprine HCl (Cyclobenzaprine 10 Mg Tab) 10 mg PO TID PRN PRN Reason: Muscle Spasm Stop: 12/11/22 10:49 Last Admin: 11/12/22 10:56 Dose: 10 mg Diazepam (Diazepam 5 Mg Tab) 5 mg PO QID PRN PRN Reason: Anxiety Stop: 12/11/22 10:49 Last Admin: 11/12/22 06:27 Dose: 5 mg Hydromorphone HCl (Hydromorphone 0.5 Mg/0.5 Ml Syringe) 0.5 mg IVP Q4HR PRN PRN Reason: Pain Stop: 12/11/22 10:49 Hydromorphone HCl (Hydromorphone 1 Mg/Ml 1 Ml Syringe) 1 mg IVP Q4HR PRN PRN Reason: Pain Stop: 12/11/22 10:49 Last Admin: 11/12/22 12:22 Dose: 1 mg Lactated Ringer's (Lactated Ringers) 1,000 mls @ 20 mls/hr IV .Q24H PIO Stop: 12/11/22 06:23 Last Admin: 11/12/22 06:04 Dose: Not Given Lidocaine HCl (Lidocaine 1% (10mg/Ml) For Iv Start) 0.1 ml INTRADERMA PER PROTOCOL PRN PRN Reason: IV Start Stop: 12/11/22 06:23 Last Admin: 11/11/22 07:00 Dose: 0.1 ml Magnesium Hydroxide (Magnesium Hydroxide 2,400 Mg/10 Ml Cup) 2,400 mg PO DAILY PRN PRN Reason: Constipation Stop: 12/11/22 10:49 Senna/Docusate Sodium (Sennosides-Docusate Sodium 1 Each Tab) 2 each PO DAILY PRN PRN Reason: Constipation Stop: 12/11/22 10:49 Tamsulosin HCl (Tamsulosin 0.4 Mg Cap.Er.24h) 0.4 mg PO PC-BRKFST PIO Last Admin: 11/12/22 10:56 Dose: 0.4 mg PHYSICAL EXAMINATION: . Patient is sitting up in the bed comfortably,, awake alert and oriented 3, well-developed, well-nourished, obese.. HEENT: Normocephalic. Neck is supple. Pupils reactive. Nostrils clear. Oral cavity is moist. Neck reveals no JVD, carotid bruits, or thyromegaly. CHEST EXAMINATION: Trachea is central. Symmetrical expansion. Lung mack clear to auscultation and percussion. CARDIAC: S1, S2 muffled ABDOMEN: Soft. Bowel sounds present. Nontender. No organomegaly. No abdominal bruits. Extremities: reveal no edema. No clubbing or cyanosis Neurologically awake, alert, oriented x3 with well-coordinated movements. No focal deficits noted Skin: No rash or skin lesions. Psychiatric: Cooperative. Non-suicidal, Musculoskeletal: No joint swelling or deformity. Normal range of motion. Lumbar surgical site bandaged. Assessment: S/p revision laminectomy and decompression the L5-S1. Postoperative day 1 Postoperative urinary retention, possibly secondary to anesthetics History of chronic back pain/spinal stenosis and degenerative disc disease, lower extremity radiculopathy and weakness. History of anxiety/panic disorder GERD Obesity with a BMI of 32.2 Hyperlipidemia DVT prophylaxis with SCDs Full code Plan: Patient will be continued on pain management as per anesthesia/pain service. Valium has been added per orthopedics patient continues to have spasms Patient having some mild postoperative urinary retention required a one-time straight catheter and patient refusing any further straight catheterizations or White. Recommend starting Flomax and monitoring closely of intake and output and any further residual is patient will be continued on void residual bladder scans. Patient reports he is dribbling and urinating just not completely emptying his bladder Continue with statins and encourage incentive spirometry and again instructed the patient to continue at least 10 times every hour while awake. Encouraged increase activity as tolerated per orthopedic restrictions We will continue to follow closely with orthopedics during hospitalization. Th ank you coming for this consultation. The impression and plan of care has been dictated by Catie Barrios, Nurse Practitioner as directed. Dr. Jared MD I have performed a history and examination and MDM of this patient, discussed the same with the dictator, and agree with the dictator's assessment and plan as written ,documented as a scribe. Based on total visit time, I have performed more than 50% of the visit. Objective - Vital Signs Vital signs: Vital Signs Temp 98.4 F 11/12/22 07:47 Pulse 82 11/12/22 08:48 Resp 16 11/12/22 08:48 BP 120/74 11/12/22 07:47 Pulse Ox 94 L 11/12/22 07:48 FiO2 Intake & Output 11/11/22 11/12/22 11/12/22 18:59 06:59 18:59 Intake Total 1601 118 200 Output Total 250 700 Balance 1351 -582 200 Weight 104.7 kg Intake: IV 951 Intake, IV Titration 650 Amount Sodium Chloride 0.9% 1, 600 000 ml @ 75 mls/hr IV . [id number] PIO Rx#:[id number] ceFAZolin 2 gm In Sodium 50 Chloride 0.9% 50 ml @ 100 mls/hr IVPB Q8HR PIO Rx# :[id number] Oral 118 200 Output: Urine 50 700 Uretheral (White) 700 Estimated Blood Loss 200 Other: Voiding Method Toilet # Voids 4 - Labs CBC & Chem 7: 11/12/22 06:23 11/12/22 06:23 Labs: Abnormal Lab Results - Last 24 Hours (Table) 11/12/22 11/12/22 Range/Units 06:23 06:23 Hgb 12.7 L (13.0-17.0) g/dL Hct 38.6 L (39.6-50.0) % Monocytes # 1.40 H (0.20-1.00) X 10*3/uL Eosinophils # 0.02 L (0.04-0.35) X 10*3/uL BUN/Creatinine Ratio 9.81 L (12.00-20.00) Ratio
[2022-11-13] MEDS: diazePAM 5 MG TAB PO PRN (01:11)
[2022-11-13] MEDS: HYDROcodone/APAP 5-325MG 1 EACH TAB PO PRN ×3 (02:55→10:52)
[2022-11-13] MEDS: HYDROmorphone 1 MG/ML 1 ML SYRINGE IVP PRN ×5 (04:15→21:40)
[2022-11-13] MEDS: LACTATED RINGERS 1,000 ML IV SCH (06:11)
[2022-11-13] MEDS: CYCLOBENZAPRINE 10 MG TAB PO PRN (06:56)
--- NOTE | 2022-11-13 08:15 | P.PN ---
Progress Note - Text Progress Note Date: 11/13/22 Postoperative day #2 Patient is seen and examined today at bedside. The patient has some pain around the surgical site as expected. He is doing much better today. He has been in and out of his bed on his own though slowly. He is voiding on his own. Pain is being controlled with medication. Physical Exam Afebrile with stable vital signs Abdomen is soft nontender. Chest has good excursion deep and space expiration The incision site is clean dry and intact. No erythema there is no purulence. Extremities have not had neurologic change from prior to surgery. Calves and thighs were soft nontender without evidence of DVT. Assessment/Plan Postoperative day 2 status post minimally invasive decompression and fusion with revision decompression L5-S1 for his spondylolisthesis. With recurrent stenosis Patient is progressing as expected from the surgery. He is able to void on his own and seems to be finishing his void. We will continue to increase the patient's mobilization with therapy. I think she'll be couple for going home tomorrow We will continue pain control with oral or IV medications. We'll continue to follow patient closely.
[2022-11-13] MEDS: SENNOSIDES-DOCUSATE SODIUM 1 EACH TAB PO PRN (08:26)
[2022-11-13 08:30] LABS: African American GFR (CKD) >90 (>60 ml/min/1.73 sqM); Anion Gap 6 mmol/L; Blood Urea Nitrogen 7 mg/dL (9-20); Calcium 8.6 mg/dL (8.4-10.2); Carbon Dioxide 27 mmol/L (22-30); Chloride 101 mmol/L (98-107); Glucose 133 mg/dL (74-99); Non-African American GFR(CKD) >90 (>60 ml/min/1.73 sqM); Potassium 3.6 mmol/L (3.5-5.1); Sodium 134 mmol/L (137-145)
[2022-11-13] MEDS: TAMSULOSIN 0.4 MG CAP.ER.24H PO SCH (09:04)
[2022-11-13] MEDS: ATORVASTATIN 20 MG TAB PO SCH (09:04)
[2022-11-13] MEDS: MAGNESIUM HYDROXIDE 2,400 MG/10 ML CUP PO PRN (17:53)
[2022-11-14] MEDS: HYDROmorphone 1 MG/ML 1 ML SYRINGE IVP PRN ×2 (02:03→21:10)
[2022-11-14] MEDS: diazePAM 5 MG TAB PO PRN ×2 (03:37→21:10)
[2022-11-14] MEDS: HYDROcodone/APAP 5-325MG 1 EACH TAB PO PRN ×2 (06:35→14:32)
[2022-11-14] MEDS: CYCLOBENZAPRINE 10 MG TAB PO PRN (06:35)
--- NOTE | 2022-11-14 06:41 | P.DS ---
Providers Date of admission: 11/12/22 08:24 Attending physician: Ammon Dailey Consults: 11/11/22 10:48 Consult Physician Routine Consulting Provider: Jolene Coleman Consult Reason/Comments: Medical management Do you want consulting provider notified?: Yes Primary care physician: Amira Caceres Nay[facility] Course: The patient presented on the day of admission as per their operative note. He had recurrent stenosis with listhesis at L5-S1 and underwent minimally invasive revision decompression with fusion at L5-S1 as per his operative note. Postoperatively he has been having pain in his back which is initially controlled with IV medications and now is controlled with oral medications. He has been able to be more mobile. He feels he is making some progress though he feels that he has had some difficulty initially with voiding and having bowel movements. He is now voiding freely. He is tolerating small diet. He denies any nausea or vomiting. He is not yet had a bowel movement has passed some small gas. Physical Exam The incision site is clean dry and intact. There is no erythema no drainage. There is no purulence no evidence of infection. The site appears clear Abdomen soft and nontender. Chest has good excursion with deep inspiration and expiration. The patient has active and passive range of motion intact at the upper and lower extremities. There is no acute change in neurologic status. He has sustained dorsal flexion plantar flexion and EHL intact Hospital Course The patient has been making slow but steady progress postoperatively. They have completed the prophylactic antibiotics without any signs or symptoms of infection. The patient has been able to advance their diet, and is tolerating diet adequately. The pain was initially controlled with IV medications and is now controlled appropriately with oral medications. The patient has been able to increase their mobilization. He is ambulatory independently in the hallways The patient initially had some urinary retention he was started on Flomax and is voiding on his own freely without difficulty. He is passing small amount of gas but has not yet had a bowel movement. The patient has progressed appropriately. We will have the patient try and suppository and potentially an enema and if he is able to have a bowel movement and feel more regular then I think they are in good stable condition for salvatore jaime today. If he is not able have a bowel movement we may have to wait another day and assessed further. If he is able have a bowel movement then They will be sent home with appropriate prescriptions. I answered their questions to the best of my ability in a language that they can understand and they are agreeable with the plan. They will follow up as directed If he is able to be discharged otherwise we'll see him in the morning. Patient Condition at Discharge: Good Plan - Discharge Summary Discharge Rx Participant: No New Discharge Prescriptions: New HYDROcodone/APAP 5-325MG [[place] 5-325] 1 - 2 tab PO Q6HR PRN #56 tab PRN Reason: Pain No Action Atorvastatin [Lipitor] 20 mg PO DAILY Ibuprofen [Advil] 200 mg PO Q8HR PRN PRN Reason: Pain Hydrocodone/Acetaminophen [Hydrocodone/Acetaminophen 5-325] 1 tab PO Q8H PRN PRN Reason: Pain Discharge Medication List Atorvastatin [Lipitor] 20 mg PO DAILY 01/15/17 [History] Hydrocodone/Acetaminophen [Hydrocodone/Acetaminophen 5-325] 1 tab PO Q8H PRN 11/03/22 [History] Ibuprofen [Advil] 200 mg PO Q8HR PRN 11/03/22 [History] HYDROcodone/APAP 5-325MG [[place] 5-325] 1 - 2 tab PO Q6HR PRN #56 tab 11/13/22 [Rx] Follow up Appointment(s)/Referral(s): Ammon Dailey DO [Doctor of Osteopathic Medicine] - 2 Weeks Activity/Diet/Wound Care/Special Instructions: Keep site clean. May shower with waterproof Tegaderm intact. Do not soak in a tub. After 72 hours postoperatively, patient May remove dressing and then may shower with area uncovered. Leave glue intact and allow it to fray off on its own. May ambulate as tolerated. Avoid heavy or rigorous activity. No repetitive bending twisting or lifting. No overhead work. Discharge Disposition: HOME SELF-CARE
--- NOTE | 2022-11-14 06:43 | PN ---
PROGRESS NOTE DATE OF SERVICE: 11/13/2022 SUBJECTIVE: This is a 42-year-old gentleman, who was admitted after laminectomy and decompression, complaining of some back pain. No chest pain. No palpitations. No fever. PHYSICAL EXAMINATION: VITAL SIGNS: Pulse is 86, blood pressure ntd respiration 17. HEENT: Conjunctivae normal. CARDIOVASCULAR: S1, S2. RESPIRATIONS: Breath sounds diminished at the bases. ABDOMEN: Soft. NERVOUS SYSTEM: No focal deficit. LABORATORY DATA: Reviewed. ASSESSMENT: 1. Status post laminectomy and decompression, L5-S1 with _ pain. 2. History of back spasms. 3. Gastroesophageal reflux disease. 4. Multiple medical issues. RECOMMENDATIONS: I recommend to continue current management and symptomatic treatment. Otherwise, closely follow with Orthopedic Surgery. Further recommendations to follow. MMODL / IJN: [id number] / MTDD
[2022-11-14] MEDS ORDERED: NA PHOS,M-B/NA PHOS,DI-BA 133 ML ENEMA RECTAL ONE (06:59)
[2022-11-14] MEDS: LACTATED RINGERS 1,000 ML IV SCH (07:51)
[2022-11-14] MEDS: TAMSULOSIN 0.4 MG CAP.ER.24H PO SCH (10:37)
[2022-11-14] MEDS: ATORVASTATIN 20 MG TAB PO SCH (10:37)
[2022-11-14] MEDS: bisacodyL 10 MG SUPP RECTAL SCH (11:25)
[2022-11-14] MEDS: DOCUSATE 100 MG CAP PO SCH ×2 (15:48→21:10)
--- NOTE | 2022-11-14 15:51 | XR ---
EXAMINATION TYPE: XR KUB DATE OF EXAM: 11/14/2022 2:19 PM INDICATION: Patient age:Male; 42 years old; Reason for study: Constipation; PHH. COMPARISON: Abdominal radiographs 09/07/2017 TECHNIQUE: Two views of the abdomen were obtained. FINDINGS: The bowel gas pattern is nonspecific without dilated loops of small or large bowel. Increas ed stool burden throughout the colonic bowel. Posterior fusion hardware of L5 and S1. Osseous structu res are otherwise intact. No abnormal calcifications are present. Fecal material and gas are demonstr ated throughout the colon and rectum. IMPRESSION: Moderate constipation without evidence for bowel obstruction.
--- NOTE | 2022-11-14 16:56 | PN ---
PROGRESS NOTE DATE OF SERVICE: 11/14/2022 SUBJECTIVE: This is a 42-year-old gentleman, who was admitted after back surgeries, complaining of some constipation and back pain also. No chest pain. No palpitations. No fever. OBJECTIVE: VITAL SIGNS: Pulse is 77, blood pressure 115/70, respirations 16. CHEST: Clear to auscultation. CARDIOVASCULAR: S1 and S2. ABDOMEN: Soft. BACK: Status post surgery. LABORATORY DATA: Reviewed. ASSESSMENT: 1. Status post laminectomy and decompression, L5-S1 with severe back pain. 2. Constipation. 3. History of back spasms. 4. Gastroesophageal reflux disease. 5. Multiple medical issues. RECOMMENDATIONS: Recommend to continue current medications and symptomatic treatment, laxatives, pain management. Closely follow with Orthopedic Surgery. Follow up with primary physician after discharge. MMODL / IJN: [id number] /
[2022-11-15] MEDS: LACTATED RINGERS 1,000 ML IV SCH (08:05)
[2022-11-15] MEDS: DOCUSATE 100 MG CAP PO SCH (08:06)
[2022-11-15] MEDS: ATORVASTATIN 20 MG TAB PO SCH (08:06)
[2022-11-15] MEDS: TAMSULOSIN 0.4 MG CAP.ER.24H PO SCH (08:07)
[2022-11-15] MEDS: bisacodyL 10 MG SUPP RECTAL SCH (08:11)
[2022-11-15 08:18] VITALS: RESP 16
[2022-11-15] MEDS: HYDROcodone/APAP 5-325MG 1 EACH TAB PO PRN ×2 (08:20→15:56)
[2022-11-15] MEDS: SENNOSIDES-DOCUSATE SODIUM 1 EACH TAB PO PRN (08:21)
--- NOTE | 2022-11-15 09:31 | P.PN ---
Subjective Progress Note Date: 11/15/22 Principal diagnosis: Lumbar stenosis L5-S1. Status post revision decompression with fusion L5-S1. This is a 42-year-old male who underwent revision decompression with minimally invasive fusion L5-S1 on 11/11/2022. It was planned that he was to be discharged to home yesterday. However, he has been unable to have a bowel movement. He is passing gas at this time. He still has not had a bowel movement since surgery. He states that his abdomen is feeling better today. He does have the urge to him bowel movement but feels he does not have the strength to pass the bowel movement. He is otherwise doing well. He has been ambulating in the [place] with the walker. Vital signs are stable. He has been afebrile. KUB x-ray was taken yesterday which shows no evidence of bowel obstruction with moderate constipation. Objective - Vital Signs Vital signs: Vital Signs Temp 98.4 F 11/15/22 07:05 Pulse 66 11/15/22 07:05 Resp 16 11/15/22 07:05 BP 127/71 11/15/22 07:05 Pulse Ox 99 11/15/22 07:37 FiO2 Intake & Output 11/14/22 11/15/22 11/15/22 18:59 06:59 18:59 Other: # Voids 1 2 # Bowel Movements 0 - Exam This is a pleasant 42-year-old male in no acute distress. He is alert and oriented 3. He is sitting up in chair and appears comfortable. Abdomen is minimally distended. Nontender to palpation. Lumbar dressing is clean, dry and intact. He has full foot and ankle motion without difficulty or pain. Neurovascular status to the lower extremities is intact. There are no neurodeficits noted. - Labs CBC & Chem 7: 11/12/22 06:23 11/13/22 07:20 Assessment and Plan (1) Status post lumbar spinal fusion Current Visit: Yes Status: Acute Code(s): Z98.1 - ARTHRODESIS STATUS SNOMED Code(s): 48154541983059 (2) Lumbar stenosis Current Visit: Yes Status: Acute Code(s): M48.061 - SPINAL STENOSIS, LUMBAR REGION WITHOUT NEUROGENIC JAYJAY SNOMED Code(s): 68700884 Plan: The clinical findings are discussed the patient. He would like to go home today. I advised him that I would like him to have a bowel movement prior to discharge today. I will discuss options with nursing staff. They will let me know later today if he is able to go home.
[2022-11-15] MEDS ORDERED: MAGNESIUM CITRATE 296 ML BOTTLE PO ONE (10:00)
[2022-11-15] MEDS: MAGNESIUM HYDROXIDE 2,400 MG/10 ML CUP PO PRN (10:13)
[2022-11-15] MEDS ORDERED: LACTULOSE 20 GM/30 ML CUP PO ONE (11:00)
[2022-11-15] MEDS ORDERED: NA PHOS,M-B/NA PHOS,DI-BA 133 ML ENEMA RECTAL ONE (12:24)
[2022-11-15] MEDS ORDERED: LACTULOSE 20 GM/30 ML CUP PO PRN (12:25)
[2022-11-15 15:48] VITALS: BP 126/82; PULSE 78; TEMP 98
[2022-11-15] MEDS: diazePAM 5 MG TAB PO PRN (15:56)
--- NOTE | 2022-11-16 07:31 | PN ---
PROGRESS NOTE DATE OF SERVICE: 11/15/2022 SUBJECTIVE: This is a 42-year-old gentleman who was admitted after back surgeries,. The patient complains of constipation. No chest pain. No palpitation. OBJECTIVE: VITAL SIGNS: Pulse , blood pressure 127/70, respirations 16. CHEST: Clear to auscultation. CARDIOVASCULAR: S1, S2. ABDOMEN: Soft, nontender. BACK: Status post surgery LABORATORY DATA: Reviewed. ASSESSMENT: 1. Status post laminectomy decompression L5-S1 for severe back pain. 2. Constipation. 3. History of back spasms. 4. Gastroesophageal reflux disease. 5. Multiple medical issues. RECOMMENDATIONS: I recommend to continue current management , continue with lactulose and after discharge, follow up with primary care physician. Rest of the recommendations per Orthopedic Surgery. Further recommendations to follow. MMODL / IJN: [id number] / MTDD
== END 2022-11-15 16:09 | disposition home or self-care (01) ==
LOC: OR 06:25 → 4SSUR 10:36 → OR 11-12 08:24
PROVIDERS: ADMIT Orthopaedic Surgery Orthopaedic Surgery of the Spine; ATTEND Orthopaedic Surgery Orthopaedic Surgery of the Spine
DX: M51.17 Intervertebral disc disorders with radiculopathy, lumbosacral region (principal); M43.17 Spondylolisthesis, lumbosacral region; E78.5 Hyperlipidemia, unspecified; K21.9 Gastro-esophageal reflux disease without esophagitis; K58.9 Irritable bowel syndrome, unspecified; Z98.890 Other specified postprocedural states; F41.9 Anxiety disorder, unspecified; R63.5 Abnormal weight gain; Z97.3 Presence of spectacles and contact lenses; Z79.1 Long term (current) use of non-steroidal anti-inflammatories (NSAID); Z79.891 Long term (current) use of opiate analgesic; Z79.899 Other long term (current) drug therapy; Z88.5 Allergy status to narcotic agent; Z82.49 Family history of ischemic heart disease and other diseases of the circulatory system; Z91.012 Allergy to eggs
CPT/HCPCS: 63052; 22630; 94760 ×5; 97116; 97161; 86900; 86901; 80048 ×2; 85025; 86850; 72100; 74018; G0378 ×4; C1713 ×2; C1762; J2250; J0330; J2710; J0690 ×2; J2405; J3010; J1170 ×5; J2704; J2001

== ENCOUNTER → 2022-11-19 | Outpatient (CLI) | payer BC ==
--- NOTE | 2022-11-19 17:33 | US ---
EXAMINATION TYPE: US venous doppler duplex LE LT DATE OF EXAM: 11/19/2022 5:21 PM COMPARISON: NONE CLINICAL HISTORY: Left, I80.9 PHLEBITIS AND THROMBOPHLEBITIS. Recent spinal surgery. Left lower leg pain and tightness. SIDE PERFORMED: Left TECHNIQUE: The lower extremity deep venous system is examined utilizing real time linear array sonog xavi with graded compression, doppler sonography and color-flow sonography. VESSELS IMAGED: Common Femoral Vein Deep Femoral Vein Greater Saphenous Vein * Femoral Vein Popliteal Vein Small Saphenous Vein * Proximal Calf Veins (* superficial vessels) Findings: Grayscale, color doppler, spectral doppler imaging performed of the deep veins of the left lower extremity. There is normal flow, compressibility, vascular waveforms. IMPRESSION: Negative for DVT, left lower extremity.
== END | disposition home or self-care (01) ==
LOC: RADUSWWP 16:57
PROVIDERS: ATTEND Orthopaedic Surgery
DX: I80.9 Phlebitis and thrombophlebitis of unspecified site (principal); M25.572 Pain in left ankle and joints of left foot; R60.0 Localized edema

== ENCOUNTER 2025-05-03 15:47 | Emergency (ER) | payer BC ==
--- NOTE | 2025-05-03 16:22 | ED ---
URI HPI - General Chief Complaint: Upper Respiratory Infection Stated Complaint: Headache,Anxiety(Flu +) Time Seen by Provider: 05/03/25 16:02 Source: patient, RN notes reviewed Mode of arrival: ambulatory Limitations: no limitations - History of Present Illness Initial Comments: This is a 44-year-old male with history of IBS presenting for sick symptoms x 48 hours. Patient states he was recently diagnosed with influenza A and prescribed Tamiflu. Endorses productive cough with green sputum, headache, difficulty breathing, sharp reproducible chest pain and associated anxiety. Patient is also requesting anxiety medication prescription today. Denies fatigue, abdominal pain, N/V/D, hemoptysis. MD Complaint: cough Onset/Timin -: days(s) Consistency: constant Associated Symptoms: headache - Related Data Home Medications Medication Instructions Recorded Confirmed Atorvastatin [Lipitor] 20 mg PO DAILY 01/15/17 11/03/22 Hydrocodone/Acetaminophen 1 tab PO Q8H PRN 11/03/22 11/03/22 [Hydrocodone/Acetaminophen 5-325] Ibuprofen [Advil] 200 mg PO Q8HR PRN 11/03/22 11/03/22 Previous Rx's Medication Instructions Recorded HYDROcodone/APAP 5-325MG [[place] 1 - 2 tab PO Q6HR PRN #56 tab 11/13/22 5-325] Tamsulosin [Flomax] 0.4 mg PO DAILY #30 cap 11/14/22 bisacodyL [Dulcolax] 10 mg RC DAILY PRN #10 suppositor 11/14/22 Ibuprofen [Motrin] 400 mg PO Q8HR PRN #30 tab 05/03/25 predniSONE 50 mg PO DAILY #5 tab 05/03/25 Allergies Allergy/AdvReac Type Severity Reaction Status Date / Time codeine Allergy agitated Verified 05/03/25 15:58 egg Allergy Diarrhea,abdominal Verified 11/03/22 10:26 cramping Review of Systems ROS Statement: Those systems with pertinent positive or pertinent negative responses have been documented in the HPI. ROS Other: All systems not noted in ROS Statement are negative. Past Medical History Past Medical History: No Reported History Additional Past Medical History / Comment(s): irritable bowel syndrome History of Any Multi-Drug Resistant Organisms: None Reported Past Surgical History: Orthopedic Surgery Additional Past Surgical History / Comment(s): laminectomy,oral surgery-no problems opening and closing jaw,closed reduction 5th digit rt hand, mult pain clinic procedures to back(steroid injections and nerve ablation) Past Anesthesia/Blood Transfusion Reactions: No Reported Reaction, Family History of Problems w/ Anesthesia Additional Past Anesthesia/Blood Transfusion Reaction / Comment(s): had panic attack w/ last laminectomy surgery,. sister has severe PONV. no hx blood transfusion Past Psychological History: Anxiety Smoking Status: Never smoker - Past Family History Mother Family Medical History: No Reported History Additional Family Medical History / Comment(s): maternal grandfather brain CA Father Family Medical History: Deep Vein Thrombosis (DVT) Additional Family Medical History / Comment(s): paternal grandfather had a stoke. paternal grandmother had emphysema General Exam Limitations: no limitations General appearance: alert, anxious Head exam: Present: atraumatic, normocephalic, normal inspection Eye exam: Present: normal appearance, PERRL, EOMI. Absent: scleral icterus, conjunctival injection, periorbital swelling ENT exam: Present: normal exam, mucous membranes moist Neck exam: Present: normal inspection. Absent: tenderness, meningismus, lymphadenopathy Respiratory exam: Present: normal lung sounds bilaterally. Absent: respiratory distress, wheezes, rales, rhonchi, stridor, accessory muscle use, decreased breath sounds, prolonged expiratory Cardiovascular Exam: Present: regular rate, normal rhythm, normal heart sounds. Absent: systolic murmur, diastolic murmur, rubs, gallop, clicks GI/Abdominal exam: Present: soft, normal bowel sounds. Absent: distended, tenderness, guarding, rebound, rigid Extremities exam: Present: normal inspection, full ROM, normal capillary refill. Absent: tenderness, pedal edema, joint swelling, calf tenderness Back exam: Present: normal inspection Neurological exam: Present: alert, oriented X3, CN II-XII intact Psychiatric exam: Present: normal affect, normal mood Skin exam: Present: warm, dry, intact, normal color. Absent: rash Course Vital Signs 05/03/25 05/03/25 05/03/25 15:55 16:31 19:38 Temperature 99.8 F H 100.4 F H 99.6 F Pulse Rate 96 71 82 Respiratory 16 18 18 Rate Blood Pressure 117/77 107/74 112/78 O2 Sat by Pulse 97 97 96 Oximetry Medical Decision Making - Medical Decision Making Was pt. sent in by a medical professional or institution ([facility], [employer], urgent care, hospital, or fdc...) When possible be specific @ -No Did you speak to anyone other than the patient for history (EMS, parent, family, police, friend...)? What history was obtained from this source @ -No Did you review nursing and triage notes (agree or disagree)? Why? @ -I reviewed and agree with nursing and triage notes Were old charts reviewed (outside hosp., previous admission, EMS record, old EKG, old radiological studies, urgent care reports/EKG's, fdc records)? Report findings @ -No old charts were reviewed Differential Diagnosis (chest pain, altered mental status, abdominal pain women, abdominal pain men, vaginal bleeding, weakness, fever, dyspnea, syncope, headache, dizziness, GI bleed, back pain, seizure, CVA, palpatations, mental health, musculoskeletal)? @ -Differential Fever: Pneumonia, viral URI, endocarditis, myocarditis, pericarditis, otitis, sinusitis, peritonsillar Abscess, retropharyngeal Abscess, epiglottitis, peritonitis, appendicitis, Roula cystitis, diverticulitis, hepatitis, colitis, UTI, PID, TOA, pyelonephritis, prostatitis, epididymitis, meningitis, encephalitis, pulmonary embolism, CVA, thyroid storm, pancreatitis, adrenal crisis, cavernous sinus thrombosis, this is not meant to be an all-inclusive list. EKG interpreted by me (3pts min.). @ -Not done X-rays interpreted by me (1pt min.). @ -CXR shows no acute cardiopulmonary process CT interpreted by me (1pt min.). @ -None done U/S interpreted by me (1pt. min.). @ -None done What testing was considered but not performed or refused? (CT, X-rays, U/S, labs)? Why? @ -None What meds were considered but not given or refused? Why? @ -None Did you discuss the management of the patient with other professionals (professionals i.e. [facility], [employer], lab, RT, psych nurse, clinical social work therapist, certified novell administrator, teacher, sales promotion officer, immigration case worker)? Give summary @ -No Was smoking cessation discussed for >3mins.? @ -No Was critical care preformed (if so, how long)? @ -No Were there social determinants of health that impacted care today? How? (H omelessness, low income, unemployed, alcoholism, drug addiction, transportation, low edu. Level, literacy, decrease access to med. care, fpc, rehab)? @ -No Was there de-escalation of care discussed even if they declined (Discuss DNR or withdrawal of care, Hospice)? DNR status @ -No What co-morbidities impacted this encounter? (DM, HTN, Smoking, COPD, CAD, Cancer, CVA, ARF, Chemo, Hep., AIDS, mental health diagnosis, sleep apnea, morbid obesity)? @ -None Was patient admitted / discharged? Hospital course, mention meds given and route, prescriptions, significant lab abnormalities, going to OR and other pertinent info. @ -CXR shows no acute cardiopulmonary process. Patient provided IM Toradol, Ativan and p.o. Tylenol/Motrin. Motrin and prednisone sent to patient's pharmacy. Advised follow-up with PCP/psychiatry for ongoing management of anxiety. Continue previously prescribed Tamiflu for flulike symptoms. Discussed patient with Dr. Aranda. Undiagnosed new problem with uncertain prognosis? @ -No Drug Therapy requiring intensive monitoring for toxicity (Heparin, Nitro, Insulin, Cardizem)? @ -No Were any procedures done? @ -No Diagnosis/symptom? @ -Influenza,, bronchitis, anxiety Acute, or Chronic, or Acute on Chronic? @ -Acute Uncomplicated (without systemic symptoms) or Complicated (systemic symptoms)? @ -Complicated Side effects of treatment? @ -No Exacerbation, Progression, or Severe Exacerbation? @ -No Poses a threat to life or bodily function? How? (Chest pain, [place], [place], pneumonia, PE, COPD, DKA, ARF, appy, cholecystitis, CVA, Diverticulitis, Homicidal, Suicidal, threat to staff... and all critical care pts) @ -No Disposition Clinical Impression: Bronchitis, Acute anxiety, Influenza Disposition: HOME SELF-CARE Condition: Fair Instructions (If sedation given, give patient instructions): Acute Bronchitis (ED), Anxiety (ED) Additional Instructions: Continue previously prescribed Tamiflu as directed. Mucinex dm 600/30 mg twice daily as needed for productive cough. Alternate Tylenol/Motrin every 4 hours for headache/pain. Follow-up with PCP/psychiatry for ongoing management of acute anxiety. Prescriptions: Ibuprofen [Motrin] 400 mg PO Q8HR PRN #30 tab PRN Reason: Pain predniSONE 50 mg PO DAILY #5 tab Is patient prescribed a controlled substance at d/c from ED?: No Referrals: None,Stated [Primary Care Provider] - 1-2 days Bipin Mc MD [STAFF PHYSICIAN] - 1-2 days Nitin Carlos MD [Medical Doctor] - 1-2 days Time of Disposition: 18:25
[2025-05-03] MEDS: KETOROLAC 15 MG/ML 1 ML VIAL IM STA (16:37)
[2025-05-03] MEDS: LORazepam 1 MG/0.5 ML VIAL IM STA (16:38)
[2025-05-03] MEDS: ACETAMINOPHEN TAB 325 MG TAB PO STA ×2 (16:41→18:42)
[2025-05-03] MEDS: IBUPROFEN 400 MG TAB PO STA ×2 (16:42→18:43)
--- NOTE | 2025-05-03 17:06 | XR ---
EXAMINATION TYPE: XR chest 2V DATE OF EXAM: 05/03/2025 4:57 PM COMPARISON: Chest radiographs from 11/02/2022 TECHNIQUE: XR chest 2V Frontal and lateral views of the chest. CLINICAL INDICATION:Male, 44 years old with history of Cough; FINDINGS: Lungs/Pleura: There is no evidence of pleural effusion, focal consolidation, or pneumothorax. Pulmonary vascularity: Unremarkable. Heart/mediastinum: Cardiomediastinal silhouette is unremarkable. Musculoskeletal: No acute osseous pathology. IMPRESSION: No acute cardiopulmonary disease/process. [facility], , 05/03/2025 5:03 PM
[2025-05-03 18:39] VITALS: RESP 18
[2025-05-03 19:39] VITALS: BP 112/78; PULSE 82; TEMP 99.6
== END 2025-05-03 19:40 | disposition home or self-care (01) ==
LOC: EC 15:47
DX: J10.1 Influenza due to other identified influenza virus with other respiratory manifestations (principal); J20.9 Acute bronchitis, unspecified; F41.9 Anxiety disorder, unspecified; Z91.012 Allergy to eggs; Z88.5 Allergy status to narcotic agent
CPT/HCPCS: 71046; 99284; 96372; J2060; J1885